=== PATIENT | male | born 1960 | race Hispanic/Latino ===

== ENCOUNTER 2021-06-16 11:53 | Emergency (ER) | payer OTHER ==
[~2021-06-16] VITALS: Ht 157.5 cm; Wt 67.1 kg
[2021-06-16] MEDS ORDERED: FLOMAX0.4 MG PO (13:50)
[2021-06-16] MEDS ORDERED: KETOROLAC TROME10 MG PO (13:50)
== END 2021-06-16 14:03 | disposition home or self-care (01) ==
LOC: FSED 11:58
DX: R10.33 Periumbilical pain (principal); R31.9 Hematuria, unspecified; N20.0 Calculus of kidney
CPT/HCPCS: 74176; 80053; 81003; 85025; 99284